=== PATIENT | female | born 1935 | race Asian ===

== ENCOUNTER 2017-07-07 10:46 | Emergency (ER) | payer MEDICARE, OTHER ==
[~2017-07-07] VITALS: Ht 152.4 cm; Wt 50.9 kg
[~2017-07-07 10:46] MED LIST: AMLO5TAB4 PO; ASPI81TA39 PO; CEFU250T58 PO; METF500T4 PO
[2017-07-07 11:15] VITALS: BP 150/90
[2017-07-07 11:22] LABS: GLUCOSE,POINT OF CARE 102 MG/DL (70-110)
[2017-07-07] MEDS ORDERED: IBUPROFEN 400 MG TABLET PO ONE (11:45)
[2017-07-07 11:49] LABS: APPEARANCE,URINE CLOUDY (CLEAR); BILIRUBIN,URINE NEGATIVE (NEGATIVE); GLUCOSE, URINE (UA) NEGATIVE (NEGATIVE); KETONES,URINE NEGATIVE (NEGATIVE); NITRATE,URINE NEGATIVE (NEGATIVE); OCCULT BLOOD,URINE MODERATE (NEGATIVE); PH,URINE 6.5 (5.0-8.0); PROTEIN,URINE TRACE (NEGATIVE); UROBILINOGEN,URINE 0.2 mg/dL (<=1.0)
[2017-07-07 12:32] LABS: LEUKOCYTE ESTERASE ,URINE MODERATE (NEGATIVE)
[2017-07-07 12:36] LABS: BACTERIA,URINE None Seen /HPF (None Seen); SQUAMOUS EPITHELIAL CELL,UR Moderate /LPF (None Seen)
[2017-07-07 12:37] LABS: RENAL EPITHELIAL CELLS,URINE Few /LPF (None Seen)
== END 2017-07-07 12:12 | disposition home or self-care (01) ==
LOC: EMS 10:50
DX: N39.0 Urinary tract infection, site not specified (principal); E11.9 Type 2 diabetes mellitus without complications; I10 Essential (primary) hypertension
CPT/HCPCS: 82962; 99283